=== PATIENT | female | born 1990 | race Two or more races ===

== ENCOUNTER 2020-06-01 23:44 | Emergency (ER) | payer MEDICARE, MEDICAID ==
[~2020-06-01] VITALS: Ht 157.5 cm; Wt 84.4 kg
[2020-06-01 23:46] VITALS: BP 125/81
== END 2020-06-02 04:04 | disposition home or self-care (01) ==
LOC: ER 23:44
DX: U07.1 COVID-19 (principal); R00.0 Tachycardia, unspecified
CPT/HCPCS: 71045; 93005